=== PATIENT | male | born 1965 | race Caucasian/White ===

== ENCOUNTER 2019-07-15 22:19 | Emergency (ER) | payer MEDICAID, OTHER ==
[~2019-07-15] VITALS: Ht 167.6 cm; Wt 69.0 kg
[2019-07-15] MEDS ORDERED: BACITRACIN ZINC OINT UDPKT TOP ONE (23:30)
[2019-07-15] MEDS ORDERED: IBUPROFEN 600MG TABLET PO ONE (23:30)
[2019-07-15] MEDS ORDERED: BACITRACIN 15GM TUBE TOP NR (23:45)
[2019-07-16 01:42] VITALS: BP 123/83
== END 2019-07-16 01:48 | disposition home or self-care (01) ==
LOC: ER 22:30
DX: S80.01XA Contusion of right knee, initial encounter (principal); S50.01XA Contusion of right elbow, initial encounter; S50.311A Abrasion of right elbow, initial encounter; Z88.0 Allergy status to penicillin; V23.4XXA Motorcycle driver injured in collision with car, pick-up truck or van in traffic accident, initial encounter; Y93.89 Activity, other specified; Y92.89 Other specified places as the place of occurrence of the external cause; Y99.8 Other external cause status
CPT/HCPCS: 29125; 72040; 73080; 73562; 99283; A4565